=== PATIENT | male | born 1965 | race African-American/Black ===

== ENCOUNTER 2018-05-24 14:41 | Outpatient (CLI) | payer OTHER ==
--- NOTE | 2018-05-24 17:47 | RAD ---
RIGHT HAND TWO VIEWS: 05/24/18 HISTORY: Right hand pain, [facility], disability exam. No strength in the right hand per patient. FINDINGS/IMPRESSION: Mild degenerative changes are present. No acute fracture or dislocation or bony destruction is seen. POS: [facility]
== END 2018-05-24 14:42 | disposition home or self-care (01) ==
LOC: BICRAD 14:41
PROVIDERS: ATTEND Internal Medicine
DX: Z02.71 Encounter for disability determination (principal); M19.041 Primary osteoarthritis, right hand